=== PATIENT | female | born 1930 | race Caucasian/White ===

== ENCOUNTER 2016-10-11 14:35 | Emergency (ER) | payer MEDICARE, OTHER ==
[~2016-10-11] VITALS: Ht 165.1 cm; Wt 65.0 kg
[~2016-10-11 14:35] MED LIST: ACET325 PO; ALUM5LIQ PO; CALCTAB77 PO; CLON0.25 PO; DOCU1CAP39 PO; DONE10TA14 PO; FIBE625T3 PO; GABA100C4 PO; GLUC1VIA2 IM; I-VITAB2 PO; LEVO100T4 PO; LORA-474 PO; MELA5TAB13 PO; MEMA28CA PO; METF500 PO; PROP20TA3 PO; REQU2TAB3 PO; SIMV40TA PO; SINE25100 PO; ST J81CH PO; SYSTSOL EACH EYE; VENL75XR PO; VITA-13 PO
[2016-10-11 15:33] VITALS: BP 134/63; PULSE 68; RESP 22; TEMP 98.3; O2SAT 96
[2016-10-11] MEDS ORDERED: SODIUM CHLORIDE 0.9% FLUSH 5 ML FLUSH IV FLUSH PRN (15:45)
--- NOTE | 2016-10-11 15:45 | PD ---
HPI Chief Complaint: Altered Mental Status Time Seen by Provider: 15:42 Travel History International Travel<30 days: No Contact w/Intl Traveler<30days: No Traveled to known affect area: No History of Present Illness HPI 86-year-old elderly female presents to the emergency department via EMS from [facility] for evaluation of altered mental status. Apparently, the patient had a trip and fall possibly 5-6 days ago according to EMS. She was not seen at that time. According to EMS, she is normally alert and oriented. However this time, she is oriented to her first name only. The patient is slow to respond, which according to EMS is new for her. The patient denies any complaints at this time and states she feels fine. Patient has a past medical history of dementia, vertigo, thrombocytopenia, hypothyroidism, diabetes type 2 , hypertension, osteoporosis, Parkinson's, macular degeneration. PFSH Past Medical History Depression: Yes Cardiovascular Problems: Yes Dementia: Yes Diabetes: Yes Diminished Hearing: Yes ([place]) Endocrine: Yes (HYPOTHYROIDISM) Hypertension: Yes Neurologic: Yes (VERTIGO) Parkinson's Disease: Yes Menopausal: Yes Social History Alcohol Use: No Tobacco Use: No Substance Use: No Allergies-Medications (Allergen,Severity, Reaction): Coded Allergies: Horse Serum Proteins (Verified Allergy, Mild, 11/26/15) Tetanus Toxoid (Verified Allergy, Mild, 11/26/15) Reported Meds & Prescriptions Reported Meds & Active Scripts Active Reported Tramadol (Tramadol HCl) 50 Mg Tab 50 Mg PO BID PRN Lorazepam 0.5 Mg Tab 0.25 Mg PO BID PRN Lorazepam 0.5 Mg Tab 0.5 Mg PO BID PRN Nuedexta 20-10 mg (Dextromethorphan HBr-Quinidine) 1 Cap Cap 1 Cap PO BID Calcium Carbonate/D3 (Calcium Carbonate-Cholecalciferol) 600-400 Mg-Unit Tab 1 Tab PO BID Colace (Docusate Sodium) 100 Mg Capsule 1 Cap PO BID Sinemet (Carbidopa-Levodopa) 25-100 Mg Tab 2 Tab PO HS Carbamazepine ER 12 HR (Carbamazepine) 400 Mg Tab 400 Mg PO HS Gabapentin 100 Mg Cap 100 Mg PO HS Melatonin 5 Mg Tab 10 Mg PO HS Zocor (Simvastatin) 40 Mg Tab 40 Mg PO DAILY Propranolol (Propranolol HCl) 40 Mg Tab 40 Mg PO HS Requip (Ropinirole HCl) 2 Mg Tab 2 Mg PO DAILY Preservision Areds 2 Softgel (Vit C/E/Zn/Coppr/Lutein/Zeaxan) 1 Each Capsule 1 Tab PO DAILY Sertraline (Sertraline HCl) 100 Mg Tab 100 Mg PO DAILY Propranolol (Propranolol HCl) 20 Mg Tab 20 Mg PO DAILY Claritin (Loratadine) 10 Mg Cap 10 Mg PO DAILY Fiber Laxative (Calcium Polycarbophil) 625 Mg Tab 1,250 Mg PO DAILY PRN Aspirin Low Dose (Aspirin) 81 Mg Chew 81 Mg CHEW DAILY Vitamin D-1000 (Cholecalciferol) 1,000 Unit Tab 3,000 Units PO DAILY Sinemet (Carbidopa-Levodopa) 25-100 Mg Tab 1 Tab PO BID Synthroid (Levothyroxine Sodium) 100 Mcg Tab 100 Mcg PO DAILY Metformin (Metformin HCl) 500 Mg Tab 500 Mg PO DAILY With a meal Review of Systems Except as stated in HPI: all other systems reviewed are Neg Physical Exam Narrative GENERAL: Well-nourished, well-developed elderly female patient, afebrile. Patient is alert. She is oriented to first name only. She does follow commands. SKIN: Focused skin assessment warm/dry. Patient is ecchymosis to left for headache HEAD: Normocephalic. Atraumatic. ENT: Mucosa pink and moist. No erythema or exudates. No uvular edema. No uvular , palatal, or tonsillar deviation. Airway patent. Nasal turbinates appear normal without nasal blood, purulent drainage or septal hematoma. Bilateral tympanic membranes are clear without erythema or perforation. EYES: No scleral icterus. No injection or drainage. NECK: Supple, trachea midline. No JVD or lymphadenopathy. CARDIOVASCULAR: Regular rate and rhythm without murmurs, gallops, or rubs. Bilateral radial and pedal pulses are 2+ RESPIRATORY: Breath sounds equal bilaterally. No accessory muscle use. Lungs sounds are clear to auscultation. GASTROINTESTINAL: Abdomen soft, non-tender, nondistended. MUSCULOSKELETAL: No cyanosis. Patient has bilateral 2+ lower extremity edema. Bilateral upper and lower extremity strength 5/5. BACK: Nontender without obvious deformity. No CVA tenderness. Data Data Last Documented VS Vital Signs Date Time Temp Pulse Resp B/P Pulse Ox O2 Delivery O2 Flow Rate FiO2 10/11/16 18:00 67 19 145/67 93 Room Air 10/11/16 15:33 98.3 Orders Electrocardiogram (10/11/16 15:38) Complete Blood Count With Diff (10/11/16 15:38) Comprehensive Metabolic Panel (10/11/16 15:38) Creatine Kinase (Cpk) (10/11/16 15:38) Prothrombin Time / Inr (Pt) (10/11/16 15:38) Act Partial Throm Time (Ptt) (10/11/16 15:38) Urinalysis - C+S If Indicated (10/11/16 15:38) Chest, Single Ap (10/11/16 15:38) Ct Brain W/O Iv Contrast(Rout) (10/11/16 15:38) Blood Glucose (10/11/16 15:38) Ecg Monitoring (10/11/16 15:38) Iv Access Insert/Monitor (10/11/16 15:38) Cath For Specimen (10/11/16 15:38) Oximetry (10/11/16 15:38) Sodium Chloride 0.9% Flush (Ns Flush) (10/11/16 15:45) Ct Cerv Spine W/O Contrast (10/11/16 ) Restraints Non-Violent NICKIE.Q3H (10/11/16 18:00) Hospice Consult (10/11/16 18:10) Labs Laboratory Tests Test 10/11/16 10/11/16 15:45 16:00 White Blood Count 6.7 TH/MM3 Red Blood Count 4.29 MIL/MM3 Hemoglobin 13.3 GM/DL Hematocrit 39.7 % Mean Corpuscular Volume 92.5 FL Mean Corpuscular Hemoglobin 30.9 PG Mean Corpuscular Hemoglobin 33.4 % Concent Red Cell Distribution Width 15.6 % Platelet Count 195 TH/MM3 Mean Platelet Volume 9.0 FL Neutrophils (%) (Auto) 68.8 % Lymphocytes (%) (Auto) 19.3 % Monocytes (%) (Auto) 9.6 % Eosinophils (%) (Auto) 1.8 % Basophils (%) (Auto) 0.5 % Neutrophils # (Auto) 4.6 TH/MM3 Lymphocytes # (Auto) 1.3 TH/MM3 Monocytes # (Auto) 0.6 TH/MM3 Eosinophils # (Auto) 0.1 TH/MM3 Basophils # (Auto) 0.0 TH/MM3 CBC Comment DIFF FINAL Differential Comment Prothrombin Time 11.2 SEC Prothromb Time International 1.0 RATIO Ratio Activated Partial 26.7 SEC Thromboplast Time Sodium Level 139 MEQ/L Potassium Level 4.3 MEQ/L Chloride Level 101 MEQ/L Carbon Dioxide Level 29.2 MEQ/L Anion Gap 9 MEQ/L Blood Urea Nitrogen 17 MG/DL Creatinine 0.72 MG/DL Estimat Glomerular Filtration 77 ML/MIN Rate Random Glucose 116 MG/DL Calcium Level 8.6 MG/DL Total Bilirubin 0.3 MG/DL Aspartate Amino Transf 11 U/L (AST/SGOT) Alanine Aminotransferase 13 U/L (ALT/SGPT) Alkaline Phosphatase 79 U/L Total Creatine Kinase 26 U/L Total Protein 6.6 GM/DL Albumin 3.2 GM/DL Urine Color YELLOW Urine Turbidity HAZY Urine pH 5.5 Urine Specific [place] 1.012 Urine Protein NEG mg/dL Urine Glucose (UA) NEG mg/dL Urine Ketones NEG mg/dL Urine Occult Blood NEG Urine Nitrite NEG Urine Bilirubin NEG Urine Urobilinogen LESS THAN 2.0 MG/DL Urine Leukocyte Esterase TRACE Urine RBC 1 /hpf Urine WBC 4 /hpf Urine Transitional Epithelial <1 /hpf Cells Microscopic Urinalysis Comment CATH-CULT NOT IND MDM Medical Decision Making Medical Screen Exam Complete: Yes Emergency Medical Condition: Yes Medical Record Reviewed: Yes Interpretation(s) Last Impressions Head CT 10/11/161537 Signed Impressions: Service Date/Time: Tuesday, October 11, 2016 16:05 - CONCLUSION: Subdural hematoma on the left with subfalcine herniation from [id number]. Loly Arriaza MD Chest X-Ray 10/11/168 Signed Impressions: Service Date/Time: Tuesday, October 11, 2016 15:37 - CONCLUSION: No acute cardiopulmonary disease. Loly Arriaza MD CT cervical spine - CONCLUSION: 1. No acute fracture or subluxation. 2. Multilevel degenerative spondylosis. Differential Diagnosis Intracranial abnormality versus electrolyte abnormality versus UTI versus pneumonia versus dehydration Narrative Course 86-year-old elderly female presents to the emergency department via EMS for evaluation of altered mental status. According to the nursing facility, she is normally alert and answered questions properly. At this time, she is oriented to her first name only. She did have a fall 5-6 days ago and was not seen. EKG , CBC, CMP, PTT, PT/INR, UA are ordered and pending. CT of the brain and cervical spine are ordered and pending. Chest x-ray is ordered and pending. EKG shows sinus rhythm, no acute ST changes. CBC is unremarkable. CMP shows no acute abnormalities. Coags are unremarkable. UA is negative for acute infection. Chest x-ray shows no acute cardiopulmonary disease. CT of the brain shows subdural hematoma on the left with subfalcine herniation from left- to-right. CT of the cervical spine shows no acute fracture or subluxation; multilevel degenerative spondylosis. 1644 - I spoke with the RN in the OR, [place], with Dr. French who states he wants me to contact his PA. We immediately called to try to talk to his PA, but she was out of the office and not answering her phone. 1715 - Dr. French requested to speak to my attending. My attending physician, Dr. Talbot, spoke with Dr. French. We will try to contact family to find their wishes, surgery vs. hospice. 1735 - I spoke to Hamilton Osborne, patient's brother, who will call his brother and will call me back. 1748 - Patient's brother, Hamilton Osborne, called me back. He states that him and his brother agreed that surgery is to watch and that he would like the patient to go back to and ago. Her brother who lives in [place] will come see her tomorrow. They agree for hospice consult. I contacted case management who has started hospice consult. The patient will be discharged back to [facility]. Diagnosis Primary Impression: Subdural hematoma, post-traumatic Qualified Code: S06.5X9A - Subdural hematoma, post-traumatic, with LOC of unspecified duration, initial encounter Patient Instructions: General Instructions, Subdural Hematoma (ED) Additional Instructions: Patient will be discharged back to [facility] with hospice consult. Med/Other Pt SpecificInfo: No Change to Meds Disposition: 01 DISCHARGE HOME Condition: Stable BrodyYajaira WALLACE Oct 11, 2016 15:45
[2016-10-11 16:00] VITALS: BP 155/67; PULSE 66; RESP 22; O2SAT 97
--- NOTE | 2016-10-11 16:06 | RADRPT ---
EXAM DATE/TIME: 10/11/2016 15:37 [facility] COMPARISON: CHEST SINGLE AP, March 31, 2015, 13:14. INDICATIONS : Altered mental status MEDICAL HISTORY : Hypertension. Dementia. SURGICAL HISTORY : None. ENCOUNTER: Initial ACUITY: 1 day PAIN SCORE: 0/10 LOCATION: chest FINDINGS: The lungs are clear without infiltrate, nodule, or mass. There is no appreciable pleural effusion fo r technique. Heart and mediastinum are unremarkable. There is prominence of the perivascular marking s with crowding of the bronchovascular markings may be due to expiratory state of this radiograph, ho wever slight interstitial process is not excluded. CONCLUSION: No acute cardiopulmonary disease. Loly Arriaza MD on October 11, 2016 at 16:03 Board Certified Radiologist. This report was verified electronically.
[2016-10-11 16:17] LABS: AUTOMATED NEUTROPHIL # 4.6 TH/MM3 (1.8-7.7); BASOPHIL % 0.5 % (0.0-2.0); EOSINOPHIL # 0.1 TH/MM3 (0-0.4); EOSINOPHIL % 1.8 % (0.0-4.0); HEMATOCRIT 39.7 % (35.0-46.0); HEMO FLAGS DIFF FINAL; LYMPH % 19.3 % (9.0-44.0); LYMPHOCYTE # 1.3 TH/MM3 (1.0-4.8); MEAN CELL VOLUME 92.5 FL (80.0-100.0); MEAN CORPUSCULAR HEMOGLOBIN 30.9 PG (27.0-34.0); MEAN CORPUSCULAR HGB CONC 33.4 % (32.0-36.0); MONO % 9.6 % (0.0-8.0); NEUT % 68.8 % (16.0-70.0); PLATELET COUNT 195 TH/MM3 (150-450); RED BLOOD COUNT 4.29 MIL/MM3 (4.00-5.30); RED CELL DISTRIBUTION WIDTH 15.6 % (11.6-17.2); WHITE BLOOD COUNT 6.7 TH/MM3 (4.0-11.0)
[2016-10-11 16:25] LABS: APTT (PATIENT) 26.7 SEC (24.3-30.1); PROTHROMBIN TIME - PATIENT 11.2 SEC (9.8-11.6)
--- NOTE | 2016-10-11 16:25 | RADRPT ---
EXAM DATE/TIME: 10/11/2016 16:05 [facility] COMPARISON: CT BRAIN W/O CONTRAST, November 26, 2015, 13:40. INDICATIONS : Trauma; fall. RADIATION DOSE: 56.35 CTDIvol (mGy) MEDICAL HISTORY : Dementia. Parkinsons. Dementia. SURGICAL HISTORY : None. ENCOUNTER: Initial ACUITY: 1 day PAIN SCALE: Non-responsive LOCATION: cranial TECHNIQUE: Multiple contiguous axial images were obtained of the head. Using automated exposure control and adj ustment of the mA and/or kV according to patient size, radiation dose was kept as low as reasonably a chievable to obtain optimal diagnostic quality images. DICOM format image data is available electro nically for review and comparison. FINDINGS: There is a large subdural hematoma on the left side maximum thickness 2 cm with acute hemorrhage within it subfalcine herniation from [id number] by approximately 1.1 cm. There is no evidence for downward transtentorial herniation. CONCLUSION: Subdural hematoma on the left with subfalcine herniation from [id number]. Loly Arriaza MD on October 11, 2016 at 16:20 Board Certified Radiologist. This report was verified electronically.
[2016-10-11 16:38] LABS: ANION GAP 9 MEQ/L (5-15); AST (GOT) 11 U/L (15-37); BICARBONATE 29.2 MEQ/L (21.0-32.0); BLOOD UREA NITROGEN 17 MG/DL (7-18); CHLORIDE 101 MEQ/L (98-107); GLOMERULAR FILTRATION RATE 77 ML/MIN (>89); POTASSIUM 4.3 MEQ/L (3.5-5.1); SODIUM (NA) 139 MEQ/L (136-145)
[2016-10-11 16:41] LABS: ALKALINE PHOSPHATASE 79 U/L (45-117); ALT (GPT) 13 U/L (10-53); TOTAL BILIRUBIN ADULT 0.3 MG/DL (0.2-1.0)
[2016-10-11 16:44] LABS: BLOOD, URINE NEG (NEG); COMMENT (UR) CATH-CULT NOT IND; CULTURE IF INDICATED CATH CULTURE NOT IND; GLUCOSE,URINE NEG (NEG); KETONE, URINE NEG (NEG); NITRITE,URINE NEG (NEG); PH, URINE 5.5 (5.0-8.5); TRANSITIONAL EPI CELLS, URINE <1 /hpf; URINE COLOR YELLOW (YELLW/STRAW)
[2016-10-11 16:49] LABS: CREATINE KINASE 26 U/L (26-192)
[2016-10-11 17:00] VITALS: BP 146/75; PULSE 61; RESP 20; O2SAT 96
[2016-10-11] MEDS ORDERED: SINE25TA PO ×2 (17:14)
[2016-10-11] MEDS ORDERED: PROP20TA3 PO (17:14)
[2016-10-11] MEDS ORDERED: ZOCO40TA PO (17:14)
[2016-10-11] MEDS ORDERED: COLA100C PO (17:14)
[2016-10-11] MEDS ORDERED: [UNRECOGNIZED DRUG - CODE] PO (17:14)
[2016-10-11] MEDS ORDERED: GABA100C4 PO (17:14)
[2016-10-11] MEDS ORDERED: MELA5TAB15 PO (17:14)
[2016-10-11] MEDS ORDERED: CARB400T2 PO (17:14)
[2016-10-11] MEDS ORDERED: CLAR10CA3 PO (17:14)
[2016-10-11] MEDS ORDERED: LORA-373 PO ×2 (17:14→17:15)
[2016-10-11] MEDS ORDERED: PROP40TA3 PO (17:14)
[2016-10-11] MEDS ORDERED: ROPI2 PO (17:14)
[2016-10-11] MEDS ORDERED: I-VITAB2 PO (17:14)
[2016-10-11] MEDS ORDERED: LEVO.1 PO (17:14)
[2016-10-11] MEDS ORDERED: VITA1000 PO (17:14)
[2016-10-11] MEDS ORDERED: SERT-129 PO (17:14)
[2016-10-11] MEDS ORDERED: FIBE625T3 PO (17:14)
[2016-10-11] MEDS ORDERED: METF500T PO (17:14)
[2016-10-11] MEDS ORDERED: ASPI81CH37 CHEW (17:14)
[2016-10-11] MEDS ORDERED: NUED20CA PO (17:14)
[2016-10-11] MEDS ORDERED: MULT10CA PO (17:14)
[2016-10-11] MEDS ORDERED: TRAM50TA PO (17:16)
--- NOTE | 2016-10-11 17:38 | RADRPT ---
EXAM DATE/TIME: 10/11/2016 16:07 [facility] COMPARISON: CT CERVICAL SPINE W/O CONTRAST, November 26, 2015, 13:40. INDICATIONS : Trauma; fall. RADIATION DOSE: 32.17 CTDIvol (mGy) MEDICAL HISTORY : Dementia. Parkinsons. SURGICAL HISTORY : None. ENCOUNTER: Initial ACUITY: 1 day PAIN SCALE: 0/10 LOCATION: Bilateral neck TECHNIQUE: Volumetric scanning of the cervical spine was performed. Multiplanar reconstructions in the sagittal, coronal and oblique axial planes were performed. Using automated exposure control and adjustment o f the mA and/or kV according to patient size, radiation dose was kept as low as reasonably achievable to obtain optimal diagnostic quality images. DICOM format image data is available electronically f or review and comparison. FINDINGS: Vertebral body heights are intact. There is intact. No acute bony fracture. There is a normal C1-2 re lationship. Sagittal alignment is stable. Facets are normally aligned. No significant prevertebral so ft tissue hematoma. Central canal is grossly patent. Redemonstration of multilevel degenerative spond ylosis and multilevel facet arthropathy. Visualized lung apices are clear. The paraspinal soft tissue s are unremarkable. CONCLUSION: 1. No acute fracture or subluxation. 2. Multilevel degenerative spondylosis. Ethan Rodriguez MD on October 11, 2016 at 17:32 Board Certified Radiologist. This report was verified electronically.
[2016-10-11 18:00] VITALS: BP 145/67; PULSE 67; RESP 19; O2SAT 93
--- NOTE | 2016-10-11 18:11 | PD ---
Data Data Last Documented VS Vital Signs Date Time Temp Pulse Resp B/P Pulse Ox O2 Delivery O2 Flow Rate FiO2 10/11/16 17:00 61 20 146/75 96 Room Air 10/11/16 15:33 98.3 Orders Electrocardiogram (10/11/16 15:38) Complete Blood Count With Diff (10/11/16 15:38) Comprehensive Metabolic Panel (10/11/16 15:38) Creatine Kinase (Cpk) (10/11/16 15:38) Prothrombin Time / Inr (Pt) (10/11/16 15:38) Act Partial Throm Time (Ptt) (10/11/16 15:38) Urinalysis - C+S If Indicated (10/11/16 15:38) Chest, Single Ap (10/11/16 15:38) Ct Brain W/O Iv Contrast(Rout) (10/11/16 15:38) Blood Glucose (10/11/16 15:38) Ecg Monitoring (10/11/16 15:38) Iv Access Insert/Monitor (10/11/16 15:38) Cath For Specimen (10/11/16 15:38) Oximetry (10/11/16 15:38) Sodium Chloride 0.9% Flush (Ns Flush) (10/11/16 15:45) Ct Cerv Spine W/O Contrast (10/11/16 ) Restraints Non-Violent NICKIE.Q3H (10/11/16 18:00) Labs Laboratory Tests Test 10/11/16 10/11/16 15:45 16:00 White Blood Count 6.7 TH/MM3 Red Blood Count 4.29 MIL/MM3 Hemoglobin 13.3 GM/DL Hematocrit 39.7 % Mean Corpuscular Volume 92.5 FL Mean Corpuscular Hemoglobin 30.9 PG Mean Corpuscular Hemoglobin 33.4 % Concent Red Cell Distribution Width 15.6 % Platelet Count 195 TH/MM3 Mean Platelet Volume 9.0 FL Neutrophils (%) (Auto) 68.8 % Lymphocytes (%) (Auto) 19.3 % Monocytes (%) (Auto) 9.6 % Eosinophils (%) (Auto) 1.8 % Basophils (%) (Auto) 0.5 % Neutrophils # (Auto) 4.6 TH/MM3 Lymphocytes # (Auto) 1.3 TH/MM3 Monocytes # (Auto) 0.6 TH/MM3 Eosinophils # (Auto) 0.1 TH/MM3 Basophils # (Auto) 0.0 TH/MM3 CBC Comment DIFF FINAL Differential Comment Prothrombin Time 11.2 SEC Prothromb Time International 1.0 RATIO Ratio Activated Partial 26.7 SEC Thromboplast Time Sodium Level 139 MEQ/L Potassium Level 4.3 MEQ/L Chloride Level 101 MEQ/L Carbon Dioxide Level 29.2 MEQ/L Anion Gap 9 MEQ/L Blood Urea Nitrogen 17 MG/DL Creatinine 0.72 MG/DL Estimat Glomerular Filtration 77 ML/MIN Rate Random Glucose 116 MG/DL Calcium Level 8.6 MG/DL Total Bilirubin 0.3 MG/DL Aspartate Amino Transf 11 U/L (AST/SGOT) Alanine Aminotransferase 13 U/L (ALT/SGPT) Alkaline Phosphatase 79 U/L Total Creatine Kinase 26 U/L Total Protein 6.6 GM/DL Albumin 3.2 GM/DL Urine Color YELLOW Urine Turbidity HAZY Urine pH 5.5 Urine Specific [place] 1.012 Urine Protein NEG mg/dL Urine Glucose (UA) NEG mg/dL Urine Ketones NEG mg/dL Urine Occult Blood NEG Urine Nitrite NEG Urine Bilirubin NEG Urine Urobilinogen LESS THAN 2.0 MG/DL Urine Leukocyte Esterase TRACE Urine RBC 1 /hpf Urine WBC 4 /hpf Urine Transitional Epithelial <1 /hpf Cells Microscopic Urinalysis Comment CATH-CULT NOT IND MDM Supervised Visit with YAMILKA: Yes Narrative Course The history, exam, and medical decision-making in the associated midlevel provider note were completed with my assistance. I reviewed and agree with the findings presented. I attest that I had a [id number] encounter with the patient on the same day, and personally performed and documented my assessment and findings in the medical record. *My assessment and Findings: This is an 86-year-old female who presents the emergency department having had a fall at her care home 5 days ago with increasing confusion. She has evidence of old bruising on her face. CT was obtained which demonstrates a subdural hematoma with subfalcine herniation. She is able to answer some questions on exam but is confused. The nurse practitioner spoke to the patient's family and the patient has expressed wishes to be DNR in the past. They don't think that neurosurgery would be within the patient's goals of care. They requested that the patient be transported back to her care home. A hospice consult was placed. Cecilia Talbot MD Oct 11, 2016 18:10
[2016-10-11 19:09] VITALS: BP 142/70; PULSE 70; RESP 18; O2SAT 95
--- NOTE | 2016-10-12 13:54 | EKG ---
Date Performed: 10/11/2016 Time Performed: 15:53:15 PTAGE: 86 years EKG: Sinus rhythm Since previous tracing, no significant change noted NORMAL ECG PREVIOUS TRACING : 03/15/2010 20.09 DOCTOR: Jaylen Pena Interpretating Date/Time 10/12/2016 13:52:45
== END 2016-10-11 23:02 | disposition home or self-care (01) ==
LOC: NEPE 14:35
DX: S06.5X9A Traumatic subdural hemorrhage with loss of consciousness of unspecified duration, initial encounter (principal); F03.90 Unspecified dementia, unspecified severity, without behavioral disturbance, psychotic disturbance, mood disturbance, and anxiety; E03.9 Hypothyroidism, unspecified; E11.9 Type 2 diabetes mellitus without complications; I10 Essential (primary) hypertension; G20 Parkinson's disease; H91.93 Unspecified hearing loss, bilateral; W19.XXXA Unspecified fall, initial encounter; Y92.129 Unspecified place in nursing home as the place of occurrence of the external cause; Z79.84 Long term (current) use of oral hypoglycemic drugs; Z87.39 Personal history of other diseases of the musculoskeletal system and connective tissue; Z86.69 Personal history of other diseases of the nervous system and sense organs; Z86.59 Personal history of other mental and behavioral disorders; Z86.79 Personal history of other diseases of the circulatory system
CPT/HCPCS: 70450; 71010; 72125; 80053; 81001; 82550; 85025; 85610; 85730; 93005; 99285; P9612